=== PATIENT | female | born 1960 | race Two or more races ===

== ENCOUNTER 2017-09-15 18:24 | Emergency (ER) | payer OTHER ==
[~2017-09-15] VITALS: Ht 157.5 cm; Wt 51.7 kg
[2017-09-15] MEDS ORDERED: SYNTHROID50 MCG (18:39)
[2017-09-15] MEDS ORDERED: EVISTA60 MG (18:40)
== END 2017-09-15 21:39 | disposition home or self-care (01) ==
LOC: ER 18:24
DX: R00.2 Palpitations (principal)

== ENCOUNTER 2017-10-10 09:57 | Outpatient (CLI) | payer OTHER ==
[~2017-10-10 09:57] MED LIST: EVISTA60 MG; SYNTHROID50 MCG
== END 2017-10-10 10:06 | disposition home or self-care (01) ==
LOC: NUCLEAR 09:57
DX: I20.0 Unstable angina (principal); I49.1 Atrial premature depolarization; I49.3 Ventricular premature depolarization

== ENCOUNTER 2019-04-27 08:51 | Outpatient (CLI) | payer OTHER | END 2019-04-27 08:53 | disposition home or self-care (01) | LOC: MAMO-SONO 08:51 | DX: N60.11 Diffuse cystic mastopathy of right breast (principal); N60.12 Diffuse cystic mastopathy of left breast ==

== ENCOUNTER 2019-04-27 12:00 | Outpatient (CLI) | payer OTHER | END 2019-04-27 15:00 | disposition home or self-care (01) | LOC: LAB 12:00 | DX: E03.8 Other specified hypothyroidism (principal) ==

== ENCOUNTER 2021-11-21 07:19 | Outpatient (CLI) | payer OTHER | END 2021-11-21 07:31 | disposition home or self-care (01) | LOC: SONOGRAMA 07:19 | PROVIDERS: ATTEND Internal Medicine Gastroenterology | DX: R16.0 Hepatomegaly, not elsewhere classified (principal) ==

== ENCOUNTER 2022-09-12 09:52 | Outpatient (CLI) | payer OTHER | END 2022-09-12 09:55 | disposition home or self-care (01) | LOC: RAD 09:52 | PROVIDERS: ATTEND Physical Medicine & Rehabilitation | DX: M79.672 Pain in left foot (principal) ==

== ENCOUNTER 2023-06-04 09:20 | Outpatient (CLI) | payer OTHER | END 2023-06-04 09:28 | disposition home or self-care (01) | LOC: RAD 09:20 | PROVIDERS: ATTEND Physical Medicine & Rehabilitation | DX: M25.512 Pain in left shoulder (principal) ==

== ENCOUNTER 2023-09-22 15:24 | Outpatient (CLI) | payer OTHER | END 2023-09-22 15:33 | disposition home or self-care (01) | LOC: RAD 15:24 | PROVIDERS: ATTEND Physical Medicine & Rehabilitation | DX: M54.2 Cervicalgia (principal) ==